=== PATIENT | female | born 1970 ===

== ENCOUNTER 2018-06-19 12:28 | Emergency (ER) | payer OTHER ==
[2018-06-19 12:28] VITALS: BMI 24.7
[2018-06-19 12:45] VITALS: BP 139/77; PULSE 97; RESP 18; TEMP 98.2; O2SAT 96
--- NOTE | 2018-06-19 13:17 | C.PDOC ---
History Of Present Illness 48 y/o female, with no past medical history, comes in to ED complaining of left foot pain since yesterday. Patient states she was home last night when she tripped on her own shoes and fell to the ground. Patient denies LOC, head trauma, numbness, or weakness, and only complains of left foot pain. States she wrapped her foot with radha bandage last night after the fall. Patient is able to ambulate but with pain. Time Seen by Provider: 06/19/18 12:47 Chief Complaint (Nursing): Lower Extremity Problem/Injury History Per: Patient History/Exam Limitations: no limitations Onset/Duration Of Symptoms: Days Current Symptoms Are (Timing): Still Present Past Medical History Reviewed: Historical Data, Nursing Documentation, Vital Signs Vital Signs: Last Vital Signs Temp 98.2 F 06/19/18 12:41 Pulse 97 H 06/19/18 12:41 Resp 18 06/19/18 12:41 BP 139/77 06/19/18 12:41 Pulse Ox 96 06/19/18 12:41 - [facility] Procedures LOCAL DESTR OVA LES NEC (07/09/13) OTH LYSIS-PERITONEAL ADHES (07/09/13) PACKED CELL TRANSFUSION (07/09/13) UTERINE LES DESTRUCT NEC (07/09/13) Family History: States: No Known Family Hx - Social History Hx Alcohol Use: Yes Hx Substance Use: No - Immunization History Hx Tetanus Toxoid Vaccination: No Hx Influenza Vaccination: No Hx Pneumococcal Vaccination: No Review Of Systems Except As Marked, All Systems Reviewed And Found Negative. Musculoskeletal: Positive for: Foot Pain (Left) Neurological: Negative for: Weakness, Numbness, Other (LOC) Physical Exam - Physical Exam Appears: Non-toxic, No Acute Distress Skin: Warm, Dry Head: Atraumatic, Normacephalic Eye(s): bilateral: Normal Inspection, PERRL, EOMI Neck: Normal ROM, Supple Chest: Symmetrical Cardiovascular: Rhythm Regular, No Murmur Respiratory: Normal Breath Sounds, No Rales, No Rhonchi, No Wheezing Gastrointestinal/Abdominal: Soft, No Tenderness Extremity: Tenderness (on dorsum of left foot, small medial aspect), Capillary Refill (less than 2 seconds), No Deformity Extremity: Bilateral: Normal Color And Temperature, Normal ROM Neurological/Psych: Oriented x3, Normal Speech, Normal Motor, Normal Sensation Gait: Steady ED Course And Treatment O2 Sat by Pulse Oximetry: 96 (RA) Pulse Ox Interpretation: Normal - Other Rad Foot X-Ray X-Ray: Read By Radiologist Interpretation: FINDINGS: BONES: Transverse lucency base of 2nd metatarsal consistent with nondisplaced fracture. No other fracture identified. JOINTS: Normal. SOFT TISSUES: There is soft tissue swelling seen over the dorsal aspect of the metatarsals in the lateral projection. OTHER FINDINGS: None. IMPRESSION: Suspect nondisplaced fracture base of 2nd metatarsal. Medical Decision Making Medical Decision Making: Impression: Left foot pain s/p fall. r/o fracture. Plan: --Foot X-Ray --Motrin 14:20 - Spoke to podiatry resident who requested to do CT of left foot. She will be coming from [place] to see patient. Disposition - Disposition Referrals: [facility] [Outside] Disposition: HOME/ ROUTINE Disposition Time: 16:14 Condition: GOOD Additional Instructions: Follow up with Dr Castro on July 01, 2018 and keep non weight bearing and ambulates with crutches. Take motrin for pain. Prescriptions: Ibuprofen [Motrin] 600 mg PO Q6 5 Days #20 tab Instructions: Foot Fracture (DC) Forms: [employer] (Sudanese) - Clinical Impression Clinical Impression: Foot fracture - Scribe Statement The provider has reviewed the documentation as recorded by the Yonisibroseanne Flynn Provider Attestation: All medical record entries made by the Scribe were at my direction and personally dictated by me. I have reviewed the chart and agree that the record accurately reflects my personal performance of the history, physical exam, medical decision making, and the department course for this patient. I have also personally directed, reviewed, and agree with the discharge instructions and disposition.
--- NOTE | 2018-06-19 14:17 | RAD ---
Date of service: 06/19/2018 PROCEDURE: Left Foot Radiographs. HISTORY: foot pain s/p fall COMPARISON: None. FINDINGS: BONES: Transverse lucency base of 2nd metatarsal consistent with nondisplaced fracture. No other fracture identified. JOINTS: Normal. SOFT TISSUES: There is soft tissue swelling seen over the dorsal aspect of the metatarsals in the lateral projection. OTHER FINDINGS: None. IMPRESSION: Suspect nondisplaced fracture base of 2nd metatarsal.
--- NOTE | 2018-06-19 15:26 | CP.PCM.CON ---
History of Present Illness - History of Present Illness History of Present Illness: Podiatry Consult Note - Dr. Castro 48 y/o female with no significant PMHx seen in ED for left foot pain after sustaining a fall yesterday. States her foot felt like it folded over on itself and her toes collapsed underneath the foot. States she has been walking since the fall but with significant pain. States she wrapped it in an DAVID bandage at home but this did not provide significant relief. Denies tingling, numbness or burning in the lower extremities. Denies loss of consciousness. Denies F/C/N/V/CP/SOB PSHx: fibroids All: NKDA SocHx: denies EtOH, cigarette or illicit drug use Review of Systems - Review of Systems All systems: reviewed and no additional remarkable complaints except (per HPI) Past Patient History - Past Social History Smoking Status: Never Smoked - PSYCHIATRIC Hx Substance Use: No - SURGICAL HISTORY Hx Surgeries: Yes Other/Comment: Fibroids - ANESTHESIA Hx Anesthesia: Yes Hx Anesthesia Reactions: No Hx Malignant Hyperthermia: No Meds Home Medications: Home Medication List Medication Instructions Recorded Confirmed Type Ibuprofen [Motrin] 600 mg PO Q6 5 Days #20 tab 06/19/18 Rx Allergies/Adverse Reactions: Allergies Allergy/AdvReac Type Severity Reaction Status Date / Time No Known Allergies Allergy Verified 06/13/13 08:32 Physical Exam - Constitutional Appears: Well, Non-toxic, No Acute Distress - Extremities Exam Extremities exam: Positive for: normal capillary refill, pedal edema, pedal pulses present Additional comments: Left lower extremity focused exam: Vasc: DP/PT pulses palpable 2/4. Temperature gradient warm to warm. CFT < 3 sec to all digits. Pedal edema noted to entire dorsum of foot Derm: no open lesions, no erythema, no ecchymosis, no clinical suspicion of infection Neuro: protective sensation grossly intact Ortho: diffuse tenderness to entire dorsum of foot at level of tarsometatarsal joints. Piano mitchell test positive at 2nd and 4th metatarsals with reproducible pain at metatarsal bases. Pinpoint tenderness overlying Lisfranc ligament and medial and middle cuneiforms on palpation. - Neurological Exam Neurological exam: Alert, Oriented x3 - Psychiatric Exam Psychiatric exam: Normal Affect, Normal Mood Results - Vital Signs Recent Vital Signs: Last Vital Signs Temp 98.2 F 06/19/18 12:41 Pulse 97 H 12/26/18 12:41 Resp 18 06/19/18 12:41 BP 139/77 06/19/18 12:41 Pulse Ox 96 06/19/18 15:05 Assessment & Plan - Assessment and Plan (Free Text) Assessment: 48 y/o female with left foot Lisfranc injury with fractures of 2nd and 4th metatarsal bases and medial cuneiform secondary to fall Plan: Pt seen and evaluated in ED Discussed with attending Dr. Matthew Esquivel foot x-ray reveals fracture at 2nd metatarsal base - LLE CT ordered to further evaluate LLE CT reveals comminuted fractures of the 2nd and 4th metatarsal bases as well as the medial cuneiform Posterior splint applied to LLE and pt dispensed crutches Pt to be NWB at all times to LLE and keep splint clean, dry and intact Pt is to follow up with Dr. Castro in [facility] on SunJul 01 from 12-3pm Thank you for this consult
--- NOTE | 2018-06-19 16:15 | CT ---
Indication: suspicion for fx at base of 2nd Metatarsal Noncontrast CT of the left foot Comparison: Left foot radiographs performed 06/19/18 Technique: Noncontrast axial images of the left foot. Sagittal coronal reformatted images were generated and reviewed. This CT exam was performed using 1 or more of the falling dose reduction techniques: Automated exposure control, adjustment of the MAA and/or kV according to patient size, and/or use of iterative reconstruction technique. Total exam DLP: 427.02 Findings: Marked soft tissue swelling. There are comminuted displaced fractures at the base of the 2nd and 4th metatarsals. Comminuted intra-articular fracture also noted involving the medial cuneiform, lateral border as well as anterior tip. Remainder the visualized osseous structures appear intact. No evidence of radiopaque foreign body. Impression: Marked soft tissue swelling with comminuted fractures involving the base of the 2nd metatarsal, 4th metatarsal, and medial cuneiform.
== END 2018-06-19 16:14 | disposition home or self-care (01) ==
LOC: C.ER 12:28
DX: S92.322A Displaced fracture of second metatarsal bone, left foot, initial encounter for closed fracture (principal); S92.342A Displaced fracture of fourth metatarsal bone, left foot, initial encounter for closed fracture; S92.242A Displaced fracture of medial cuneiform of left foot, initial encounter for closed fracture; W01.198A Fall on same level from slipping, tripping and stumbling with subsequent striking against other object, initial encounter; Y92.009 Unspecified place in unspecified non-institutional (private) residence as the place of occurrence of the external cause

== ENCOUNTER 2018-07-08 08:31 | Day surgery (SDC) | payer OTHER ==
[2018-07-04 13:19] VITALS: BMI 28.7
[2018-07-08] MEDS ORDERED: Propofol 10 mg/ml Inj (20 ML) ONE (11:25)
[2018-07-08] MEDS ORDERED: LIDOCAINE 2% PF (2ML) ONE ×2 (11:25→11:26)
[2018-07-08] MEDS ORDERED: Midazolam 2 MG/2 ML VIAL ONE (11:25)
[2018-07-08] MEDS ORDERED: ceFAZolin 1 gm in NS 2 GM/200 ML BAG IVPB ONE (11:27)
[2018-07-08] MEDS ORDERED: Bupivacaine 0.25% 20 ML INJ IJ ONE ×2 (11:27→14:48)
[2018-07-08] MEDS ORDERED: Phenylephrine 10 mg/ml Inj ONE (12:16)
[2018-07-08] MEDS ORDERED: Oxycodone/Acetaminophen 5/325 mg Tab PO PRN ×2 (12:59)
--- NOTE | 2018-07-08 13:03 | PCM.SURG1 ---
Surgeon's Initial Post Op Note - Surgeon's Notes Surgeon: STANLEY ChristianM Wood Model Maker: Dr. Maria Ines Rogers DPMG PGY-3; STANLEY PhamM PGY-2 Type of Anesthesia: General LMA, Block Regional (popliteal), Local Anesthesia Administered By: Dr. Huber MD Pre-Operative Diagnosis: lisfranc fracture and dislocation left foot Operative Findings: see op note Post-Operative Diagnosis: same Operation Performed: ORIF lisfranc ligament fracture/dislocation left foot Specimen/Specimens Removed: none Estimated Blood Loss: EBL {In ML}: 2 Blood Products Given: N/A Drains Used: No Drains Post-Op Condition: Good Date of Surgery/Procedure: 07/08/18 Time of Surgery/Procedure: 10:45
[2018-07-08] MEDS ORDERED: HYDROmorphone 0.5 mg/0.5 ml ISec ONE (13:13)
[2018-07-08] MEDS: HYDROmorphone 0.5 mg/0.5 ml ISec IVP PRN ×3 (13:13→13:32)
[2018-07-08] MEDS ORDERED: Lactated Ringer's 1,000 ML IV SCH (13:15)
--- NOTE | 2018-07-08 13:29 | RAD ---
Date of service: 07/08/2018 PROCEDURE: Intraoperative Fluoroscopy. HISTORY: LT. FOOT LISFRANC fracture FINDINGS: Fluoroscopic assistance was provided for left foot open reduction internal fixation. Please refer to the operative report from SOPHIA Feng.
[2018-07-08] MEDS ORDERED: Lactated Ringer's 1,000 ML IV ONE (14:00)
[2018-07-08] MEDS ORDERED: Lidocaine Hydrochloride 5 ML INJ ONE (14:49)
--- NOTE | 2018-07-08 15:32 | PCM.ANESB2 ---
Popliteal Nerve Block - Popliteal Nerve Block Date of Procedure: 07/08/18 Anesthesiologist: Jeromy Pre-Procedure Diagnosis: s/p left foot ORIF Post-Procedure Diagnosis: same Procedure Performed: Popliteal Nerve Block Left - Procedure Popliteal Nerve Block: This procedure was explained to the patient that it is for post-operative pain management. Consent was obtained after a thorough discussion with the patient regarding the benefits and possible complications of local anesthetic block of the sciatic nerve at the popliteal level. The patient was brought to the PACU room and standard monitors are applied. Time-out was held with the PACU nurse to confirm the appropriate block. After applying oxygen by nasal cannula, patient's operative leg was gently raised and supported and the groove in between the biceps femoris and vastus lateralis muscles was carefully palpated. The skin approximately 8cm above the popliteal crease was then marked. The ultrasound transducer was then applied to the posterior thigh approximately 8cm above the popliteal crease in the transverse plane and the sciatic nerve before its division was visualized lateral to the popliteal artery and in between the bicep femoris and semimembranosus/semitendinosus muscles. After identification, the lateral and posterior portion of the thigh was prepped with Chloraprep and Lidocaine 1% was injected subcutaneously for topical anesthesia. At this point, a # 21 gauge Stimuplex insulated 4 inch needle was inserted into pre-marked area and advanced in a perpendicular direction. The needle was inserted above the ultrasound transducer in-plane towards the sciatic nerve in a [id number]-wafhog direction. Needle advancement was performed carefully under direct ultrasound visualization. Nerve stimulator was used and dorsiflexion of the left foot was elicited at a current of 0.5 MA. After repeated negative aspiration, 2cc of 0.25% Bupivacaine was injected and this was followed with 28cc of 0.25% Bupivacaine. Under ultrasound guidance the local anesthetics were observed surrounding sciatic nerve. The needle was removed intact and sterile dressing was applied. The patient tolerated the popliteal nerve block well with stable vital signs.
[2018-07-08 15:38] VITALS: PULSE 78; RESP 12; TEMP 98.6; O2SAT 98
[2018-07-08 16:16] VITALS: BP 125/69
--- NOTE | 2018-07-08 16:25 | RAD ---
PROCEDURE: Left Foot Radiographs. HISTORY: s/p L foot surgery COMPARISON: Left foot radiographs performed 06/19/18 FINDINGS: Two views. BONES: Images are obtained through a cast which obscures osseous detail. Postsurgical changes with screw appearing to traverse the medial cuneiform to the base of the 2nd metatarsal. No acute displaced fracture. JOINTS: No dislocation. SOFT TISSUES: Soft tissue swelling. OTHER FINDINGS: None. IMPRESSION: Images are obtained through a cast. Postsurgical changes. Soft tissue swelling.
--- NOTE | 2018-07-10 08:55 | OP ---
PROCEDURE DATE: 07/08/2018 SURGEON: Sparkle Castro DPM COTTAGE MASTER: Delmis Rogers DPM, PGY-3; Dr. Ru Ventura DPM, PGY-2. ECOLOGICAL RISK ASSESSOR: Dr. Ngo. ANESTHESIA: General LMA with local plus popliteal block. PREOPERATIVE DIAGNOSIS: Lisfranc ligament fracture dislocation of the left foot. POSTOPERATIVE DIAGNOSIS: Lisfranc ligament fracture dislocation of the left foot. INDICATIONS: The patient is a 48-year-old female with the above-mentioned diagnosis. Overall, the patient did suffer a trip and fall injury approximately 2-1/2 weeks prior by sustaining a Lisfranc ligament and fracture dislocation of her left foot. The patient has been strictly nonweightbearing in the below-knee posterior splint with crutches, strictly nonweightbearing to the left foot. The preoperative imaging did show a dislocation of the Lisfranc ligament with an avulsion fracture of the medial cuneiform and also the second metatarsal base. The patient signed the consent after careful explanation of all risks, benefits, complications, and alternatives to surgical procedure. No guarantees were given nor implied. Ancef 2 g IV was given to the patient 1-1/2 hour prior to the procedure. N.p.o. status was confirmed prior to taking the patient to the operating room. PREPARATION: The patient was brought to the operating room and placed in the operating room table in a supine position. A well-padded thigh tourniquet was applied to the patient's left thigh with plenty of Webril cast padding. After induction of anesthesia, the foot was then prepped and draped in the usual sterile manner. Esmarch was utilized to exsanguinate the patient's left foot. The pneumatic thigh tourniquet was then inflated to 350 mmHg, and the procedure was begun. DESCRIPTION OF PROCEDURE: Approximately, a 5 cm linear longitudinal incision was made over the second metatarsal base in the area of the dorsal surface of the foot. Care was taken to avoid all vital neurovascular structures. All bleeders were cauterized as necessary. A combination of sharp and blunt dissection was utilized to through the deeper planes of tissue. At this time using guidance of intraoperative fluoroscopy, the base of the second metatarsal as well as the lateral and distal aspect of the medial cuneiform were identified. At this time, it could be appreciated that there was an avulsion fracture coming off of the medial cuneiform and not off of the second metatarsal base. The second metatarsal base appeared to be intact and within anatomical alignment of the second tarsometatarsal joint. There did appear to be gapping of the Lisfranc ligament with attenuation of the ligament noted. Any small bone fragments were then removed in passing the operative field, and the surgical site was flushed with copious amounts of sterile normal saline solution. Next, using a threaded 1.25 K-wire under direct fluoroscopic guidance was drilled from the medial aspect of the medial cuneiform extending into the base of the second metatarsal in a dorsal distal fashion. Prior to intravenous K-wire, a bone tenaculum was utilized to anatomically reduce the medial cuneiform, and then, the second metatarsal, thus reapproximating the location of the Lisfranc ligament which was checked fluoroscopically. Again, the position of the K-wire was checked at this time and there appeared to be incorrect anatomic position. Next, the size cannulated drill was then used to drill holes across K-wire orientation. Using standard AO principles and techniques, a Synthes 3.5 x 20 mm threaded cannulated screw was then inserted in its place across the K-wire with excellent compression achieved. The K-wire was then removed, and final intraoperative fluoroscopy was utilized to identify proper anatomic position of the Lisfranc during at this time. The surgical site was then flushed with copious amounts of sterile normal saline solution. The deep subcutaneous tissue was left unsutured in order to prevent any adhesions or nerve entrapment 4-0 Monocryl suture. The surgical site was then injected with 10 mL of 0.25% Marcaine plain. The incision was then bandaged using Steri-Strip, Adaptic, 4 x 4s, Maurice Matsonx, and a well-padded posterior splint of the ankle positioning in neutral. was then applied onto the patient's left lower extremity. POSTOPERATIVE CONDITION: The patient tolerated the procedure and anesthesia well. No apparent complications or complaints. The patient was exported from the OR to the recovery room with vital signs stable and neurovascular structures intact to the patient's left foot. The patient will be strictly nonweightbearing to the left foot with crutches. The patient will follow up with Dr. Castro in the Podiatry Clinic within one week. Delmis Rogers DPM Sparkle Castro DPM
== END 2018-07-08 16:17 | disposition home or self-care (01) ==
LOC: C.SDS 08:31
PROVIDERS: ATTEND Podiatrist Foot & Ankle Surgery
DX: S92.902A Unspecified fracture of left foot, initial encounter for closed fracture (principal); W01.0XXA Fall on same level from slipping, tripping and stumbling without subsequent striking against object, initial encounter
CPT/HCPCS: 28485; 73620; 76000; J0690; J1170; J2250; J2370; J2704; J3010; J7120